=== PATIENT | female | born 1950 | race African-American/Black ===

== ENCOUNTER 2020-06-15 23:26 | Emergency (ER) | payer MEDICARE, MEDICAID ==
[~2020-06-15] VITALS: Ht 165.1 cm; Wt 91.0 kg
[~2020-06-15 23:26] MED LIST: ABIL10 PO; ABIL5 PO
[2020-06-16] MEDS ORDERED: IPRATROPIUM BROMIDE (0.02%) 0.5MG/2.5ML NEB HHN STA (00:26)
[2020-06-16] MEDS ORDERED: ALBUTEROL (0.083%) 2.5MG/3ML NEB HHN STA (00:26)
[2020-06-16] MEDS ORDERED: PREDNISONE 20MG TABLET PO STA (00:26)
[2020-06-16 00:38] LABS: BASOPHILS % 0.4 % (0.0-2.0); EOSINOPHILS % 0.1 % (0.0-5.0); HEMATOCRIT. 51.4 % (36.0-48.0); LYMPHOCYTES % 14.5 % (20.0-50.0); MEAN CORPUSCULAR HEMOGLOBIN 33.1 pg (28.0-32.0); MEAN CORPUSCULAR VOLUME 100.4 fL (81.0-99.0); MEAN PLATELET VOLUME 8.5 fl (7.4-10.4); MONOCYTES % 6.3 % (2.0-8.0); NEUTROPHILS % 78.7 % (40.0-76.0); PLATELET 93 x1000/uL (130-400); RED BLOOD CELL COUNT 5.12 mill/uL (4.2-5.4); RED CELL DISTRIBUTION WIDTH 16.3 % (11.6-14.6)
[2020-06-16] MEDS ORDERED: SODIUM CHLORIDE 0.9% 1,000 ML IV ONE ×2 (01:30→03:15)
[2020-06-16] MEDS ORDERED: AMOX-494 MT (03:17)
[2020-06-16] MEDS ORDERED: AZIT500T8 MT (03:17)
[2020-06-16] MEDS ORDERED: P50 PO (03:17)
[2020-06-16 03:25] VITALS: BP 165/98
== END 2020-06-16 03:34 | disposition home or self-care (01) ==
LOC: ER 23:26 → CANBEDREQ 06-16 07:14
DX: J44.1 Chronic obstructive pulmonary disease with (acute) exacerbation (principal); N17.9 Acute kidney failure, unspecified; E11.9 Type 2 diabetes mellitus without complications; Z79.899 Other long term (current) drug therapy
CPT/HCPCS: 36415; 71045; 80048; 85025; 99284; J7030

== ENCOUNTER 2020-06-17 07:10 | Emergency (ER) | payer MEDICARE, MEDICAID ==
[~2020-06-17] VITALS: Ht 162.6 cm; Wt 103.0 kg
[~2020-06-17 07:10] MED LIST changes: +AMOX-494 MT; +AZIT500T8 MT; +P50 PO
[2020-06-17] MEDS ORDERED: BACITRACIN ZINC OINT UDPKT TOP ONE (07:45)
[2020-06-17] MEDS ORDERED: ACETAMINOPHEN 325MG TABLET PO ONE (07:45)
[2020-06-17 12:30] VITALS: BP 120/78
== END 2020-06-17 12:30 | disposition home or self-care (01) ==
LOC: ER 07:32
DX: S83.8X2A Sprain of other specified parts of left knee, initial encounter (principal); G50.1 Atypical facial pain; W05.0XXA Fall from non-moving wheelchair, initial encounter; Y93.89 Activity, other specified; Y92.480 Sidewalk as the place of occurrence of the external cause; I10 Essential (primary) hypertension; E11.9 Type 2 diabetes mellitus without complications; J45.909 Unspecified asthma, uncomplicated; J44.9 Chronic obstructive pulmonary disease, unspecified; G31.9 Degenerative disease of nervous system, unspecified; F17.210 Nicotine dependence, cigarettes, uncomplicated; Z71.6 Tobacco abuse counseling; Z59.0 Homelessness; Z79.899 Other long term (current) drug therapy
CPT/HCPCS: 73562; 99284; 99406

== ENCOUNTER 2020-06-20 21:32 | Emergency (ER) | payer MEDICARE, MEDICAID ==
[~2020-06-20] VITALS: Ht 157.5 cm; Wt 69.0 kg
[2020-06-20] MEDS ORDERED: IPRATROPIUM BROMIDE (0.02%) 0.5MG/2.5ML NEB HHN STA (22:08)
[2020-06-20] MEDS ORDERED: LEVOFLOXACIN 750MG PREMIX 150 ML IV STA (22:08)
[2020-06-20] MEDS ORDERED: ALBUTEROL (0.083%) 2.5MG/3ML NEB HHN STA (22:08)
[2020-06-20] MEDS ORDERED: METHYLPREDNISOLONE SOD SUCC 125 MG/2 ML VIAL IV STA (22:08)
[2020-06-20] MEDS ORDERED: FUROSEMIDE 20MG/2ML VIAL IVP ONE (22:15)
[2020-06-20] MEDS ORDERED: VANCOMYCIN 1 G PREMIX 200 ML IV SCH (22:15)
[2020-06-21 00:02] LABS: BASOPHILS % 0.7 % (0.0-2.0); EOSINOPHILS % 1.8 % (0.0-5.0); HEMATOCRIT. 53.2 % (36.0-48.0); HEMOGLOBIN. 17.9 g/dL (12.0-16.0); LYMPHOCYTES % 23.8 % (20.0-50.0); MEAN CORPUSCULAR HEMOGLOBIN 33.5 pg (28.0-32.0); MEAN CORPUSCULAR VOLUME 99.9 fL (81.0-99.0); MEAN PLATELET VOLUME 8.6 fl (7.4-10.4); MONOCYTES % 7.6 % (2.0-8.0); NEUTROPHILS % 66.1 % (40.0-76.0); PLATELET 129 x1000/uL (130-400); RED BLOOD CELL COUNT 5.33 mill/uL (4.2-5.4); RED CELL DISTRIBUTION WIDTH 16.2 % (11.6-14.6)
[2020-06-21 00:08] LABS: CHLORIDE 106 mEq/L (98-107)
[2020-06-21 01:10] VITALS: BP 126/89
== END 2020-06-21 01:30 | disposition home or self-care (01) ==
LOC: ER 21:32 → EDBEDREQTM 23:21 → EDBEDREQSVC 23:21 → EDBEDREQ 23:21 → CANBEDREQ 06-21 01:18 → ER 06-21 01:30
DX: R06.02 Shortness of breath (principal); R05 Cough; J44.9 Chronic obstructive pulmonary disease, unspecified; I50.9 Heart failure, unspecified
CPT/HCPCS: 36415; 80053; 83880; 84484; 85025; 87040; 93005; 96365; 96368; 96375; 99284; J1940; J1956; J2930; J3370

== ENCOUNTER 2021-02-05 19:08 | Inpatient (IN) | payer MEDICARE, MEDICAID ==
[~2021-02-05] VITALS: Ht 157.5 cm; Wt 93.0 kg
[2021-02-06 00:34] LABS: HEMATOCRIT. 44.5 % (36.0-48.0); MEAN CORPUSCULAR HEMOGLOBIN 33.2 pg (28.0-32.0); MEAN CORPUSCULAR VOLUME 98.5 fL (81.0-99.0); MEAN PLATELET VOLUME 8.3 fl (7.4-10.4); PLATELET 88 x1000/uL (130-400); RED BLOOD CELL COUNT 4.51 mill/uL (4.2-5.4); RED CELL DISTRIBUTION WIDTH 17.2 % (11.6-14.6)
[2021-02-06 00:38] LABS: CHLORIDE 100 mEq/L (98-107)
[2021-02-06] MEDS ORDERED: FUROSEMIDE 40MG/4ML VIAL IVP NR (01:00)
[2021-02-06] MEDS ORDERED: ACETAMINOPHEN 325MG TABLET PO PRN (03:00)
[2021-02-06] MEDS ORDERED: CEFEPIME 1,000 MG in DEXTROSE 5% WATER 50 ML IV SCH (04:00)
[2021-02-06 08:18] LABS: HEMATOCRIT. 46.2 % (36.0-48.0); HEMOGLOBIN. 15.4 g/dL (12.0-16.0); MEAN CORPUSCULAR HEMOGLOBIN 32.9 pg (28.0-32.0); MEAN CORPUSCULAR VOLUME 98.6 fL (81.0-99.0); MEAN PLATELET VOLUME 8.4 fl (7.4-10.4); PLATELET 79 x1000/uL (130-400); RED BLOOD CELL COUNT 4.68 mill/uL (4.2-5.4); RED CELL DISTRIBUTION WIDTH 17.9 % (11.6-14.6)
[2021-02-06] MEDS ORDERED: FUROSEMIDE 40MG/4ML VIAL IV SCH ×2 (09:00→17:15)
[2021-02-06] MEDS ORDERED: FUROSEMIDE 40MG/4ML VIAL IVP SCH (09:00)
[2021-02-06 10:10] LABS: NUCLEATED RED BLOOD CELLS 1 /100 WBC
[2021-02-06 10:11] LABS: PLATELET ESTIMATE DECREASED
[2021-02-06] MEDS ORDERED: LOSARTAN POTASSIUM 25 MG TABLET PO SCH (10:15)
[2021-02-06 10:22] LABS: NUCLEATED RED BLOOD CELLS 1 /100 WBC
[2021-02-06 10:24] LABS: PLATELET ESTIMATE DECREASED
[2021-02-06 10:40] VITALS: BP 130/90
[2021-02-06] MEDS: IPRATROPIUM/ALBUTEROL 0.5-3(2.5)MG/3ML NEB HHN SCH ×2 (11:50→19:56)
[2021-02-06 12:00] VITALS: BP 127/89
[2021-02-06 16:00] VITALS: BP 123/75
[2021-02-06 20:00] VITALS: BP 125/80
[2021-02-06] MEDS ORDERED: METHYLPREDNISOLONE SOD SUCC 40 MG/ML VIAL IV SCH (22:00)
[2021-02-07] VITALS: BP 129/76
[2021-02-07] MEDS: IPRATROPIUM/ALBUTEROL 0.5-3(2.5)MG/3ML NEB HHN SCH (02:21)
[2021-02-07] MEDS ORDERED: CEFEPIME 1,000 MG in DEXTROSE 5% WATER 50 ML IV SCH (09:00)
[2021-02-07] MEDS ORDERED: FURO-151 PO (16:54)
== END 2021-02-07 03:55 | disposition left against medical advice (07) | DRG 194 ==
LOC: ER 19:08 → 6WST 02-06 03:39 → EDBEDREQ 02-06 03:46 → EDBEDREQTM 02-06 03:46 → ENRESERV 02-06 07:12
PROVIDERS: ADMIT Family Medicine Adult Medicine; ATTEND Family Medicine Adult Medicine
DX: I11.0 Hypertensive heart disease with heart failure (principal); D69.6 Thrombocytopenia, unspecified; N17.9 Acute kidney failure, unspecified; I42.9 Cardiomyopathy, unspecified; D72.819 Decreased white blood cell count, unspecified; M19.90 Unspecified osteoarthritis, unspecified site; I50.9 Heart failure, unspecified; Z53.29 Procedure and treatment not carried out because of patient's decision for other reasons; J44.1 Chronic obstructive pulmonary disease with (acute) exacerbation; Z87.891 Personal history of nicotine dependence; Z79.899 Other long term (current) drug therapy; Z99.81 Dependence on supplemental oxygen; Z79.52 Long term (current) use of systemic steroids
CPT/HCPCS: 36415; 71045; 80048; 80053; 83880; 84145; 84484; 85025; 94640; 99285; J0692; J1940; J2920; J7060